=== PATIENT | male | born 1980 | race Caucasian/White ===

== ENCOUNTER → 2017-08-29 | Day surgery (SDC) | payer OTHER ==
[~2017-08-29] MED LIST: LIDOCAINE 2% INJ 100 MG/5 ML SDV (FOR ANES.) As Ordered; PROPOFOL 200 MG/20 ML VIAL As Ordered
[2017-08-29] MEDS: NS 1,000 ML IV (09:59)
== END | disposition home or self-care (01) ==
LOC: M OPP 09:44
DX: K64.0 First degree hemorrhoids (principal); K63.89 Other specified diseases of intestine; K62.5 Hemorrhage of anus and rectum; R19.4 Change in bowel habit; K57.30 Diverticulosis of large intestine without perforation or abscess without bleeding; K22.8 Other specified diseases of esophagus; R12 Heartburn; Z88.8 Allergy status to other drugs, medicaments and biological substances; Z87.891 Personal history of nicotine dependence; Z80.3 Family history of malignant neoplasm of breast; Z83.3 Family history of diabetes mellitus; Z80.42 Family history of malignant neoplasm of prostate
CPT/HCPCS: 45380

== ENCOUNTER 2021-02-19 15:23 | Inpatient (IN) | payer OTHER ==
[~2021-02-19] VITALS: Ht 180.3 cm; Wt 86.5 kg
[2021-02-19] MEDS ORDERED: NS 1,000 ML IV ONE (17:50)
[2021-02-19] MEDS ORDERED: METOCLOPRAMIDE INJ 10MG/2ML VIAL (J2765 PER 1) IV ONE (17:50)
[2021-02-19] MEDS ORDERED: MORPHINE 4 MG/ML 1ML VIAL/SYRINGE (J2270) IV ONE (17:50)
[2021-02-19 18:16] LABS: BASO % 0.3 % (0.0-1.0); EOS % 0.1 % (0.0-3.0); HEMATOCRIT 46.2 % (42.0-52.0); HEMOGLOBIN 14.9 g/dl (13.5-17.5); LYMPH # 0.7 10^3/uL (1.5-5.0); LYMPH % 4.8 % (24.0-44.0); MEAN CORPUSCULAR HEMOGLOBIN 30.7 pg (27.0-33.0); MEAN CORPUSCULAR HGB CONC 32.3 g/dl (32.0-36.5); MEAN CORPUSCULAR VOLUME 95.3 fl (80.0-96.0); MONO # 0.6 10^3/uL (0.0-0.8); MONO % 4.4 % (2.0-8.0); NEUTROPHILS # 12.9 10^3/uL (1.5-8.5); PLATELET COUNT, AUTOMATED 401 10^3/uL (150-450); RED BLOOD COUNT 4.85 10^6/uL (4.30-6.10); WHITE BLOOD COUNT 14.3 10^3/uL (4.0-10.0)
[2021-02-19 18:32] LABS: INR 0.99; PROTHROMBIN TIME 13.5 SECONDS (12.7-14.5)
[2021-02-19 18:33] LABS: PARTIAL THROMBOPLASTIN TIME 30.5 SECONDS (25.9-37.0)
[2021-02-19] MEDS ORDERED: METF-839 PO (18:33)
[2021-02-19] MEDS ORDERED: PANT20TA6 PO (18:33)
[2021-02-19] MEDS ORDERED: medical marijuana (18:33)
[2021-02-19 18:37] LABS: ALT/SGPT 334 U/L (12-78); BILIRUBIN,DIRECT 2.8 MG/DL (0.0-0.2); BILIRUBIN,TOTAL 3.7 MG/DL (0.2-1.0); BLOOD UREA NITROGEN 10 MG/DL (7-18); CALCIUM LEVEL 10.3 MG/DL (8.5-10.1); CARBON DIOXIDE LEVEL 26 MEQ/L (21-32); CHLORIDE LEVEL 105 MEQ/L (98-107); CREATININE FOR GFR 0.98 MG/DL (0.70-1.30); GLOMERULAR FILTRATION RATE > 60.0 (>60); GLUCOSE, FASTING 111 MG/DL (70-100); LIPASE 322 U/L (73-393); POTASSIUM SERUM 4.4 MEQ/L (3.5-5.1); SODIUM LEVEL 139 MEQ/L (136-145); TOTAL PROTEIN 7.7 GM/DL (6.4-8.2)
[2021-02-19] MEDS ORDERED: HOME MED LIST COMPLETE! XX SCH (21:55)
[2021-02-19] MEDS ORDERED: MOM 30ML SUSPENSION UDC PO PRN (23:05)
[2021-02-20] MEDS ORDERED: PERCOCET 5MG/325MG TAB PO PRN ×2 (02:15→17:30)
[2021-02-20] MEDS: PERCOCET 5MG/325MG TAB PO PRN ×2 (04:27→20:39)
[2021-02-20 08:30] VITALS: BP 141/73
[2021-02-20 08:38] LABS: HEMOGLOBIN 13.8 g/dl (13.5-17.5); MEAN CORPUSCULAR HEMOGLOBIN 30.9 pg (27.0-33.0); MEAN CORPUSCULAR HGB CONC 32.1 g/dl (32.0-36.5); MEAN CORPUSCULAR VOLUME 96.2 fl (80.0-96.0); PLATELET COUNT, AUTOMATED 354 10^3/uL (150-450); RED BLOOD COUNT 4.47 10^6/uL (4.30-6.10); WHITE BLOOD COUNT 9.5 10^3/uL (4.0-10.0)
[2021-02-20] MEDS: DOCUSATE SODIUM 100MG CAPSULE PO SCH ×2 (09:00→20:39)
[2021-02-20 09:07] LABS: ALBUMIN 3.5 GM/DL (3.2-5.2); ALT/SGPT 299 U/L (12-78); BILIRUBIN,TOTAL 2.2 MG/DL (0.2-1.0); BLOOD UREA NITROGEN 12 MG/DL (7-18); CALCIUM LEVEL 9.5 MG/DL (8.5-10.1); CARBON DIOXIDE LEVEL 23 MEQ/L (21-32); CHLORIDE LEVEL 105 MEQ/L (98-107); CREATININE FOR GFR 0.86 MG/DL (0.70-1.30); GLOMERULAR FILTRATION RATE > 60.0 (>60); GLUCOSE, FASTING 75 MG/DL (70-100); POTASSIUM SERUM 4.5 MEQ/L (3.5-5.1); SODIUM LEVEL 139 MEQ/L (136-145); TOTAL PROTEIN 6.7 GM/DL (6.4-8.2)
[2021-02-20] MEDS: HEPARIN SOD (PORCINE) 5000UNITS/ML 1ML VIAL/SYRINGE SC SCH ×2 (09:26→20:38)
[2021-02-20] MEDS ORDERED: ISOVUE-300 61% 50ML VIAL As Ordered ONE (13:54)
[2021-02-20] MEDS ORDERED: LIDOCAINE 2% 100MG/5ML SDV (FOR ANES.) As Ordered ONE (14:06)
[2021-02-20] MEDS ORDERED: fentaNYL 100 MCG/2 ML INJECTION As Ordered ONE (14:06)
[2021-02-20] MEDS ORDERED: ROCURONIUM BROMIDE 50 MG/5 ML VIAL As Ordered ONE (14:06)
[2021-02-20] MEDS ORDERED: propofoL 200 MG/20 ML VIAL As Ordered ONE (14:06)
[2021-02-20] MEDS ORDERED: MIDAZOLAM INJ 2MG/2ML VIAL (J2250 PER 1MG) As Ordered ONE ×2 (14:07→17:18)
[2021-02-20] MEDS ORDERED: GLUCAGON INJ 1MG VIAL As Ordered ONE (15:15)
[2021-02-20] MEDS ORDERED: METOCLOPRAMIDE INJ 10MG/2ML VIAL (J2765 PER 1) As Ordered ONE (16:16)
[2021-02-20] MEDS ORDERED: SUGAMMADEX SODIUM 500 MG/5 ML VIAL (BRIDION) As Ordered ONE (16:17)
[2021-02-20] MEDS ORDERED: KETOROLAC 60MG 2ML VIAL As Ordered ONE (16:19)
[2021-02-20] MEDS: MIDAZOLAM INJ 2MG/2ML VIAL (J2250 PER 1MG) IV SCH ×2 (17:19→17:39)
[2021-02-20] MEDS ORDERED: diphenhydrAMINE 50MG/ML VIAL (J1200) As Ordered ONE (17:22)
[2021-02-20] MEDS: diphenhydrAMINE 50MG/ML VIAL (J1200) IV PRN ×2 (17:24→18:11)
[2021-02-20] MEDS ORDERED: PROMETHAZINE INJ 25 MG/ML VIAL (J2550) IV PRN (17:30)
[2021-02-20] MEDS ORDERED: METOCLOPRAMIDE INJ 10MG/2ML VIAL (J2765 PER 1) IV PRN (17:30)
[2021-02-20] MEDS ORDERED: fentaNYL 100 MCG/2 ML INJECTION IV PRN (17:30)
[2021-02-20] MEDS ORDERED: LR 1,000 ML IV SCH (17:30)
[2021-02-20 17:38] LABS: TRIGLYCERIDES LEVEL 103 MG/DL (<150)
[2021-02-20 18:38] VITALS: BP 156/95
[2021-02-20 22:00] VITALS: BP 110/76
[2021-02-20] MEDS ORDERED: diphenhydrAMINE 50MG/ML VIAL (J1200) IV ONE (22:00)
[2021-02-20] MEDS ORDERED: FAMOTIDINE INJ 20MG/2ML VIAL (S0028 PER 1) IVP ONE (22:00)
[2021-02-21] MEDS: PERCOCET 5MG/325MG TAB PO PRN ×4 (02:39→23:36)
[2021-02-21 06:00] VITALS: BP 125/82
[2021-02-21] MEDS: ACETAMINOPHEN TAB 650MG DOSE (2X325MG) PO PRN (06:09)
[2021-02-21] MEDS ORDERED: MORPHINE 2 MG/ML 1ML VIAL (J2270) IV ONE (06:20)
[2021-02-21 07:53] LABS: HEMATOCRIT 42.6 % (42.0-52.0); HEMOGLOBIN 13.5 g/dl (13.5-17.5); MEAN CORPUSCULAR HEMOGLOBIN 30.5 pg (27.0-33.0); MEAN CORPUSCULAR HGB CONC 31.7 g/dl (32.0-36.5); MEAN CORPUSCULAR VOLUME 96.2 fl (80.0-96.0); PLATELET COUNT, AUTOMATED 370 10^3/uL (150-450); RED BLOOD COUNT 4.43 10^6/uL (4.30-6.10); WHITE BLOOD COUNT 8.6 10^3/uL (4.0-10.0)
[2021-02-21 08:12] LABS: HEMOGLOBIN A1c 5.7 %
[2021-02-21 08:17] LABS: ALBUMIN 3.4 GM/DL (3.2-5.2); ALT/SGPT 260 U/L (12-78); BILIRUBIN,TOTAL 1.3 MG/DL (0.2-1.0); BLOOD UREA NITROGEN 15 MG/DL (7-18); CALCIUM LEVEL 9.2 MG/DL (8.5-10.1); CARBON DIOXIDE LEVEL 26 MEQ/L (21-32); CHLORIDE LEVEL 104 MEQ/L (98-107); CHOLESTEROL LEVEL 189 MG/DL (<200); CHOLESTEROL RISK RATIO 5.558 (<5); CREATININE FOR GFR 1.06 MG/DL (0.70-1.30); GLOMERULAR FILTRATION RATE > 60.0 (>60); GLUCOSE, FASTING 90 MG/DL (70-100); HDL CHOLESTEROL 34 MG/DL (>40); LDL CHOLESTEROL 129 MG/DL (<100); NON-HDL-C 155 MG/DL; POTASSIUM SERUM 4.4 MEQ/L (3.5-5.1); SODIUM LEVEL 138 MEQ/L (136-145); TOTAL PROTEIN 6.6 GM/DL (6.4-8.2); TRIGLYCERIDES LEVEL 129 MG/DL (<150)
[2021-02-21] MEDS: DOCUSATE SODIUM 100MG CAPSULE PO SCH ×2 (09:00→21:00)
[2021-02-21] MEDS: HEPARIN SOD (PORCINE) 5000UNITS/ML 1ML VIAL/SYRINGE SC SCH ×2 (09:37→20:26)
[2021-02-21] MEDS ORDERED: NS 1,000 ML IV ONE (11:15)
[2021-02-21] MEDS: NS 1,000 ML IV SCH ×2 (11:26→17:08)
[2021-02-21] MEDS: MORPHINE 2 MG/ML 1ML VIAL (J2270) IV PRN ×2 (12:34→20:13)
[2021-02-21] MEDS ORDERED: diphenhydrAMINE 50MG/ML VIAL (J1200) IV PRN (20:10)
[2021-02-21 22:00] VITALS: BP 134/82
[2021-02-22] MEDS: RAMELTEON 8 MG TAB (ROZEREM) PO PRN ×2 (00:13→23:53)
[2021-02-22] MEDS: NS 1,000 ML IV SCH ×4 (05:56→21:50)
[2021-02-22] MEDS: PERCOCET 5MG/325MG TAB PO PRN ×3 (05:57→20:39)
[2021-02-22 06:00] VITALS: BP 124/77
[2021-02-22 07:03] LABS: HEMATOCRIT 40.1 % (42.0-52.0); HEMOGLOBIN 12.7 g/dl (13.5-17.5); MEAN CORPUSCULAR HEMOGLOBIN 30.8 pg (27.0-33.0); MEAN CORPUSCULAR HGB CONC 31.7 g/dl (32.0-36.5); MEAN CORPUSCULAR VOLUME 97.1 fl (80.0-96.0); PLATELET COUNT, AUTOMATED 339 10^3/uL (150-450); RED BLOOD COUNT 4.13 10^6/uL (4.30-6.10); WHITE BLOOD COUNT 7.8 10^3/uL (4.0-10.0)
[2021-02-22 07:38] LABS: ALBUMIN 3.1 GM/DL (3.2-5.2); ALT/SGPT 177 U/L (12-78); BILIRUBIN,TOTAL 0.8 MG/DL (0.2-1.0); BLOOD UREA NITROGEN 7 MG/DL (7-18); CALCIUM LEVEL 8.7 MG/DL (8.5-10.1); CARBON DIOXIDE LEVEL 30 MEQ/L (21-32); CHLORIDE LEVEL 106 MEQ/L (98-107); CREATININE FOR GFR 0.81 MG/DL (0.70-1.30); GLOMERULAR FILTRATION RATE > 60.0 (>60); GLUCOSE, FASTING 120 MG/DL (70-100); POTASSIUM SERUM 3.9 MEQ/L (3.5-5.1); SODIUM LEVEL 141 MEQ/L (136-145); TOTAL PROTEIN 6.2 GM/DL (6.4-8.2)
[2021-02-22] MEDS: HEPARIN SOD (PORCINE) 5000UNITS/ML 1ML VIAL/SYRINGE SC SCH ×2 (08:45→20:38)
[2021-02-22] MEDS: DOCUSATE SODIUM 100MG CAPSULE PO SCH ×2 (08:45→21:00)
[2021-02-22 10:53] LABS: CA19-9 TUMOR MARKER,CARBOHYDRA 11.4 U/ML (<35.0)
[2021-02-22 14:00] VITALS: BP 135/81
[2021-02-22] MEDS ORDERED: DEXTROSE 50% 50 ML SYRINGE IV PRN (14:40)
[2021-02-22] MEDS ORDERED: GLUCOSE 4GM CHEW TABLET PO PRN (14:40)
[2021-02-22] MEDS ORDERED: GLUCAGON INJ 1MG VIAL SC PRN (14:40)
[2021-02-22] MEDS: HumaLOG INSULIN (NovoLOG) PER UNIT SC SCH ×2 (17:30→21:00)
[2021-02-22 19:51] VITALS: BP 136/82
[2021-02-22] MEDS: MORPHINE 2 MG/ML 1ML VIAL (J2270) IV PRN (23:50)
[2021-02-23 06:00] VITALS: BP 134/81
[2021-02-23 06:34] LABS: HEMATOCRIT 38.6 % (42.0-52.0); HEMOGLOBIN 12.7 g/dl (13.5-17.5); MEAN CORPUSCULAR HEMOGLOBIN 31.4 pg (27.0-33.0); MEAN CORPUSCULAR HGB CONC 32.9 g/dl (32.0-36.5); MEAN CORPUSCULAR VOLUME 95.5 fl (80.0-96.0); PLATELET COUNT, AUTOMATED 333 10^3/uL (150-450); RED BLOOD COUNT 4.04 10^6/uL (4.30-6.10); WHITE BLOOD COUNT 10.8 10^3/uL (4.0-10.0)
[2021-02-23 07:07] LABS: ALBUMIN 2.9 GM/DL (3.2-5.2); ALT/SGPT 130 U/L (12-78); BILIRUBIN,TOTAL 0.7 MG/DL (0.2-1.0); BLOOD UREA NITROGEN 6 MG/DL (7-18); CALCIUM LEVEL 8.7 MG/DL (8.5-10.1); CARBON DIOXIDE LEVEL 27 MEQ/L (21-32); CHLORIDE LEVEL 110 MEQ/L (98-107); CREATININE FOR GFR 0.82 MG/DL (0.70-1.30); GLOMERULAR FILTRATION RATE > 60.0 (>60); GLUCOSE, FASTING 102 MG/DL (70-100); POTASSIUM SERUM 4.1 MEQ/L (3.5-5.1); SODIUM LEVEL 143 MEQ/L (136-145)
[2021-02-23] MEDS: HumaLOG INSULIN (NovoLOG) PER UNIT SC SCH ×4 (07:30→21:00)
[2021-02-23] MEDS: DOCUSATE SODIUM 100MG CAPSULE PO SCH ×3 (09:00→21:11)
[2021-02-23] MEDS: NS 1,000 ML IV SCH ×3 (09:50→17:51)
[2021-02-23] MEDS: HEPARIN SOD (PORCINE) 5000UNITS/ML 1ML VIAL/SYRINGE SC SCH ×2 (09:51→21:11)
[2021-02-23] MEDS: PERCOCET 5MG/325MG TAB PO PRN ×2 (09:51→21:16)
[2021-02-23 14:00] VITALS: BP 140/88
[2021-02-23] MEDS: ACETAMINOPHEN TAB 650MG DOSE (2X325MG) PO PRN (17:50)
[2021-02-23 22:00] VITALS: BP 134/86
[2021-02-24] MEDS: RAMELTEON 8 MG TAB (ROZEREM) PO PRN (00:27)
[2021-02-24] MEDS: NS 1,000 ML IV SCH (00:27)
[2021-02-24 06:00] VITALS: BP 131/82
[2021-02-24 06:32] LABS: HEMATOCRIT 38.4 % (42.0-52.0); HEMOGLOBIN 12.4 g/dl (13.5-17.5); MEAN CORPUSCULAR HEMOGLOBIN 30.8 pg (27.0-33.0); MEAN CORPUSCULAR HGB CONC 32.3 g/dl (32.0-36.5); MEAN CORPUSCULAR VOLUME 95.3 fl (80.0-96.0); PLATELET COUNT, AUTOMATED 346 10^3/uL (150-450); RED BLOOD COUNT 4.03 10^6/uL (4.30-6.10); WHITE BLOOD COUNT 10.2 10^3/uL (4.0-10.0)
[2021-02-24 06:51] LABS: ALT/SGPT 98 U/L (12-78); BILIRUBIN,TOTAL 0.6 MG/DL (0.2-1.0); BLOOD UREA NITROGEN 7 MG/DL (7-18); CALCIUM LEVEL 8.8 MG/DL (8.5-10.1); CARBON DIOXIDE LEVEL 28 MEQ/L (21-32); CHLORIDE LEVEL 109 MEQ/L (98-107); CREATININE FOR GFR 0.87 MG/DL (0.70-1.30); GLOMERULAR FILTRATION RATE > 60.0 (>60); GLUCOSE, FASTING 103 MG/DL (70-100); POTASSIUM SERUM 4.2 MEQ/L (3.5-5.1); SODIUM LEVEL 143 MEQ/L (136-145); TOTAL PROTEIN 6.2 GM/DL (6.4-8.2)
[2021-02-24] MEDS: HumaLOG INSULIN (NovoLOG) PER UNIT SC SCH (07:30)
[2021-02-24] MEDS: DOCUSATE SODIUM 100MG CAPSULE PO SCH (09:00)
[2021-02-24] MEDS: HEPARIN SOD (PORCINE) 5000UNITS/ML 1ML VIAL/SYRINGE SC SCH (09:00)
[2021-02-24] MEDS ORDERED: PERCOCET PO (09:31)
[2021-02-24 16:09] LABS: ANCA-ATYPICAL <1:20 titer (Neg:<1:20); ANTI-MITOCHONDRIAL ANTIBODY <20.0 Units (0.0-20.0); CYTOPLASMIC NEUTROP AB ANCA-C <1:20 titer (Neg:<1:20); PERINUCLEAR AB ANCA-P <1:20 titer (Neg:<1:20)
== END 2021-02-24 12:55 | disposition home or self-care (01) | DRG 439 ==
LOC: M ED 15:23 → EDBD 15:23 → M ED INP 23:03 → ENRESERV 02-20 06:35 → M MS5PR 02-20 08:15
PROVIDERS: ADMIT Family Medicine; ATTEND Family Medicine
PROC: 0FB98ZX Excision of Common Bile Duct, Via Natural or Artificial Opening Endoscopic, Diagnostic (ICD-10-PCS; 2021-02-20)
PROC: 0F798DZ Dilation of Common Bile Duct with Intraluminal Device, Via Natural or Artificial Opening Endoscopic (ICD-10-PCS; principal; 2021-02-20 10:25)
DX: K85.00 Idiopathic acute pancreatitis without necrosis or infection (principal); R17 Unspecified jaundice; E11.9 Type 2 diabetes mellitus without complications; Z79.84 Long term (current) use of oral hypoglycemic drugs; Z79.899 Other long term (current) drug therapy; Z20.822 Contact with and (suspected) exposure to COVID-19; Z88.5 Allergy status to narcotic agent; Z88.6 Allergy status to analgesic agent; Z88.8 Allergy status to other drugs, medicaments and biological substances

== ENCOUNTER 2021-05-06 10:34 | Emergency (ER) | payer OTHER ==
[~2021-05-06] VITALS: Ht 180.3 cm; Wt 88.6 kg
[~2021-05-06 10:34] MED LIST changes: -LIDOCAINE 2% INJ 100 MG/5 ML SDV (FOR ANES.) As Ordered; +METF-839 PO; +PANT20TA6 PO; +PERCOCET PO; -PROPOFOL 200 MG/20 ML VIAL As Ordered; +medical marijuana
[2021-05-06 11:29] LABS: BASO # 0.1 10^3/uL (0.0-0.2); BASO % 0.5 % (0.0-1.0); EOS # 0.2 10^3/uL (0.0-0.5); EOS % 2.3 % (0.0-3.0); HEMATOCRIT 43.5 % (42.0-52.0); HEMOGLOBIN 14.4 g/dl (13.5-17.5); LYMPH # 2.7 10^3/uL (1.5-5.0); LYMPH % 27.9 % (24.0-44.0); MEAN CORPUSCULAR HEMOGLOBIN 31.6 pg (27.0-33.0); MEAN CORPUSCULAR HGB CONC 33.1 g/dl (32.0-36.5); MEAN CORPUSCULAR VOLUME 95.6 fl (80.0-96.0); MONO # 0.9 10^3/uL (0.0-0.8); MONO % 8.8 % (2.0-8.0); NEUTROPHILS # 5.8 10^3/uL (1.5-8.5); NEUTROPHILS % 60.1 % (36.0-66.0); PLATELET COUNT, AUTOMATED 375 10^3/uL (150-450); RED BLOOD COUNT 4.55 10^6/uL (4.30-6.10); WHITE BLOOD COUNT 9.7 10^3/uL (4.0-10.0)
[2021-05-06 11:52] LABS: ALBUMIN 3.7 GM/DL (3.2-5.2); ALT/SGPT 26 U/L (12-78); BILIRUBIN,TOTAL 0.2 MG/DL (0.2-1.0); BLOOD UREA NITROGEN 10 MG/DL (7-18); CALCIUM LEVEL 9.6 MG/DL (8.5-10.1); CARBON DIOXIDE LEVEL 26 MEQ/L (21-32); CHLORIDE LEVEL 107 MEQ/L (98-107); GLOMERULAR FILTRATION RATE > 60.0 (>60); GLUCOSE, FASTING 106 MG/DL (70-100); LIPASE 291 U/L (73-393); POTASSIUM SERUM 5.4 MEQ/L (3.5-5.1); SODIUM LEVEL 139 MEQ/L (136-145); TOTAL PROTEIN 6.9 GM/DL (6.4-8.2)
[2021-05-06] MEDS ORDERED: NS 1,000 ML IV ONE (12:40)
[2021-05-06] MEDS ORDERED: METOCLOPRAMIDE INJ 10MG/2ML VIAL (J2765 PER 1) IV ONE (13:15)
[2021-05-06] MEDS ORDERED: MORPHINE 4 MG/ML 1ML VIAL/SYRINGE (J2270) IV ONE (13:15)
[2021-05-06] MEDS ORDERED: ISOVUE-370 76% 100ML VIAL As Ordered ONE (13:37)
[2021-05-06 15:30] VITALS: BP 119/73
== END 2021-05-06 16:25 | disposition home or self-care (01) ==
LOC: M ED 10:34
DX: R10.10 Upper abdominal pain, unspecified (principal); R11.0 Nausea; E11.9 Type 2 diabetes mellitus without complications; Z87.19 Personal history of other diseases of the digestive system; Z88.5 Allergy status to narcotic agent; Z88.8 Allergy status to other drugs, medicaments and biological substances; Z91.018 Allergy to other foods; Z79.84 Long term (current) use of oral hypoglycemic drugs; Z77.098 Contact with and (suspected) exposure to other hazardous, chiefly nonmedicinal, chemicals; F12.20 Cannabis dependence, uncomplicated
CPT/HCPCS: 74177; 80053; 81001; 83690; 85025; 96361; 96374; 96375; 99284; J2270; J2765; Q9967

== ENCOUNTER → 2021-08-31 | Outpatient (CLI) | payer OTHER ==
[~2021-08-31] MED LIST changes: +PROHANCE 279.3MG/ML 15ML VIAL As Ordered ONE; +PROHANCE 279.3MG/ML 5ML VIAL As Ordered ONE
== END ==
LOC: M RAD 13:21
PROVIDERS: ATTEND Internal Medicine Gastroenterology
DX: K86.3 Pseudocyst of pancreas (principal); K86.1 Other chronic pancreatitis; K83.1 Obstruction of bile duct
CPT/HCPCS: 74183; A9576

== ENCOUNTER 2022-05-24 11:21 | Emergency (ER) | payer BC, OTHER ==
[~2022-05-24] VITALS: Ht 180.3 cm; Wt 91.3 kg
[~2022-05-24 11:21] MED LIST changes: -PROHANCE 279.3MG/ML 15ML VIAL As Ordered ONE; -PROHANCE 279.3MG/ML 5ML VIAL As Ordered ONE
[2022-05-24] MEDS ORDERED: SERT25TA21 (11:59)
[2022-05-24] MEDS ORDERED: HYDR-3363 (11:59)
[2022-05-24 12:37] LABS: BASO # 0.1 10^3/uL (0.0-0.2); BASO % 0.4 % (0.0-1.0); EOS # 0.1 10^3/uL (0.0-0.5); EOS % 1.1 % (0.0-3.0); HEMATOCRIT 45.9 % (42.0-52.0); HEMOGLOBIN 14.2 g/dl (13.5-17.5); LYMPH # 2.1 10^3/uL (1.5-5.0); LYMPH % 16.1 % (24.0-44.0); MEAN CORPUSCULAR HEMOGLOBIN 30.3 pg (27.0-33.0); MEAN CORPUSCULAR HGB CONC 30.9 g/dl (32.0-36.5); MEAN CORPUSCULAR VOLUME 97.9 fl (80.0-96.0); MONO % 7.3 % (2.0-8.0); NEUTROPHILS # 9.7 10^3/uL (1.5-8.5); NEUTROPHILS % 74.8 % (36.0-66.0); PLATELET COUNT, AUTOMATED 442 10^3/uL (150-450); RED BLOOD COUNT 4.69 10^6/uL (4.30-6.10)
[2022-05-24 12:45] LABS: LIPASE 145 U/L (12-53)
[2022-05-24 12:48] LABS: ALBUMIN 3.8 G/DL (3.2-5.2); ALKALINE PHOSPHATASE 86 U/L (46-116); ALT/SGPT 22 U/L (7.0-40); AST/SGOT 16 U/L (<34); BILIRUBIN,DIRECT 0.1 MG/DL (<0.4); BILIRUBIN,TOTAL 0.3 MG/DL (0.3-1.2); BLOOD UREA NITROGEN 9 MG/DL (9-23); CALCIUM LEVEL 9.4 MG/DL (8.5-10.1); CARBON DIOXIDE LEVEL 31 MMOL/L (20-31); CHLORIDE LEVEL 104 MMOL/L (98-107); CREATININE FOR GFR 0.83 MG/DL (0.70-1.30); GLOMERULAR FILTRATION RATE > 60.0 (>60); GLUCOSE, FASTING 112 MG/DL (60-100); POTASSIUM SERUM 5.1 MMOL/L (3.5-5.1); SODIUM LEVEL 140 MMOL/L (136-145); TOTAL PROTEIN 7.1 G/DL (5.7-8.2)
[2022-05-24] MEDS ORDERED: ISOVUE-370 76% 100ML VIAL As Ordered ONE (13:15)
[2022-05-24] MEDS ORDERED: MORPHINE 4 MG/ML 1ML VIAL IV ONE (14:10)
[2022-05-24] MEDS ORDERED: NS 1,000 ML IV ONE (14:10)
[2022-05-24] MEDS ORDERED: PROMETHAZINE 25MG/ML 1ML VIAL IV ONE (14:10)
[2022-05-24] MEDS ORDERED: diphenhydrAMINE 50MG/ML VIAL IV STA (14:47)
[2022-05-24] MEDS ORDERED: PERC5TAB12 PO (16:26)
[2022-05-24] MEDS ORDERED: PROM25TA12 PO (16:26)
[2022-05-24 18:37] VITALS: BP 123/70
== END 2022-05-24 18:40 | disposition home or self-care (01) ==
LOC: M ED 11:21
DX: K86.1 Other chronic pancreatitis (principal); K31.89 Other diseases of stomach and duodenum; E11.9 Type 2 diabetes mellitus without complications; Z88.6 Allergy status to analgesic agent; Z88.5 Allergy status to narcotic agent; Z88.8 Allergy status to other drugs, medicaments and biological substances; Z79.84 Long term (current) use of oral hypoglycemic drugs; Z79.899 Other long term (current) drug therapy
CPT/HCPCS: 74177; 80048; 80076; 81001; 83690; 85025; 96374; 96375; 99284; J1200; J2270; J2550

== ENCOUNTER 2022-06-06 11:24 | Inpatient (IN) | payer BC ==
[~2022-06-06] VITALS: Ht 180.3 cm; Wt 90.5 kg
[~2022-06-06 11:24] MED LIST changes: +HYDR-3363; +PERC5TAB12 PO; +PROM25TA12 PO; +SERT25TA21
[2022-06-06] MEDS ORDERED: PRED10TA2 (11:41)
[2022-06-06 13:13] LABS: BASO % 0.2 % (0.0-1.0); EOS # 0.1 10^3/uL (0.0-0.5); EOS % 0.4 % (0.0-3.0); HEMATOCRIT 45.6 % (42.0-52.0); HEMOGLOBIN 14.3 g/dl (13.5-17.5); LYMPH # 3.4 10^3/uL (1.5-5.0); MEAN CORPUSCULAR HEMOGLOBIN 30.4 pg (27.0-33.0); MEAN CORPUSCULAR HGB CONC 31.4 g/dl (32.0-36.5); MONO # 1.3 10^3/uL (0.0-0.8); NEUTROPHILS # 11.4 10^3/uL (1.5-8.5); PLATELET COUNT, AUTOMATED 467 10^3/uL (150-450); WHITE BLOOD COUNT 16.3 10^3/uL (4.0-10.0)
[2022-06-06 13:40] LABS: LIPASE 232 U/L (12-53)
[2022-06-06 13:46] LABS: ALBUMIN 4.1 G/DL (3.2-5.2); ALKALINE PHOSPHATASE 87 U/L (46-116); ALT/SGPT 20 U/L (7.0-40); AST/SGOT 14 U/L (<34); BILIRUBIN,DIRECT 0.1 MG/DL (<0.4); BILIRUBIN,TOTAL 0.3 MG/DL (0.3-1.2); BLOOD UREA NITROGEN 12 MG/DL (9-23); CALCIUM LEVEL 9.1 MG/DL (8.5-10.1); CARBON DIOXIDE LEVEL 29 MMOL/L (20-31); CHLORIDE LEVEL 104 MMOL/L (98-107); CREATININE FOR GFR 0.82 MG/DL (0.70-1.30); GLOMERULAR FILTRATION RATE > 60.0 (>60); GLUCOSE, FASTING 83 MG/DL (60-100); POTASSIUM SERUM 3.8 MMOL/L (3.5-5.1); SODIUM LEVEL 140 MMOL/L (136-145); TOTAL PROTEIN 7.4 G/DL (5.7-8.2)
[2022-06-06 14:01] LABS: CK-MB VALUE MASS < 1.0 NG/ML (<3.6)
[2022-06-06 14:03] LABS: CPK CREATINE PHOSPHOKINASE 42 U/L (46-171); MB/CK RELATIVE INDEX 2.38 (< OR =4)
[2022-06-06] MEDS ORDERED: NS 1,000 ML IV ONE (14:10)
[2022-06-06] MEDS ORDERED: PROMETHAZINE 25MG/ML 1ML VIAL IV ONE (14:10)
[2022-06-06] MEDS ORDERED: MORPHINE 4 MG/ML 1ML VIAL IV ONE (14:10)
[2022-06-06] MEDS ORDERED: ISOVUE-370 76% 100ML VIAL As Ordered ONE (14:34)
[2022-06-06] MEDS ORDERED: PIPERACILLIN/TAZOBACTAM SOD 3.375 GM in D5W MINI-BAG PLUS 50 ML IV ONE (15:50)
[2022-06-06] MEDS: LR 1,000 ML IV SCH (16:12)
[2022-06-06 16:41] LABS: CHOLESTEROL LEVEL 203 MG/DL (<200); CHOLESTEROL RISK RATIO 5.12 (<5); HDL CHOLESTEROL 39.6 MG/DL (>40); LDL CHOLESTEROL 135.2 MG/DL (<100); NON-HDL-C 163.4 MG/DL; TRIGLYCERIDES LEVEL 141 MG/DL (<150)
[2022-06-06] MEDS ORDERED: MORPHINE 2 MG/ML 1ML VIAL IV PRN (18:00)
[2022-06-06] MEDS ORDERED: ACETAMINOPHEN 500 MG TAB PO PRN (18:00)
[2022-06-06] MEDS ORDERED: OXYC1TAB23 PO (18:44)
[2022-06-06] MEDS ORDERED: PRED10TA2 PO (18:50)
[2022-06-06] MEDS ORDERED: HOME MED LIST COMPLETE! XX SCH (18:50)
[2022-06-06] MEDS ORDERED: PROM25TA12 PO (18:50)
[2022-06-06] MEDS: predniSONE 10MG TAB PO SCH (19:14)
[2022-06-06 20:10] VITALS: BP 117/75
[2022-06-06] MEDS: MORPHINE 4 MG/ML 1ML VIAL IV PRN (21:29)
[2022-06-07] VITALS (8 sets, daily range): BP systolic 117–128; BP diastolic 73–81
[2022-06-07] MEDS: LR 1,000 ML IV SCH ×2 (06:31→15:46)
[2022-06-07] MEDS: MORPHINE 4 MG/ML 1ML VIAL IV PRN ×4 (06:31→23:47)
[2022-06-07 07:00] LABS: BASO % 0.2 % (0.0-1.0); EOS % 0.2 % (0.0-3.0); HEMATOCRIT 39.6 % (42.0-52.0); HEMOGLOBIN 12.5 g/dl (13.5-17.5); LYMPH % 18.3 % (24.0-44.0); MEAN CORPUSCULAR HEMOGLOBIN 30.6 pg (27.0-33.0); MEAN CORPUSCULAR HGB CONC 31.6 g/dl (32.0-36.5); MEAN CORPUSCULAR VOLUME 97.1 fl (80.0-96.0); MONO # 0.8 10^3/uL (0.0-0.8); MONO % 7.2 % (2.0-8.0); NEUTROPHILS # 8.2 10^3/uL (1.5-8.5); NEUTROPHILS % 73.7 % (36.0-66.0); PLATELET COUNT, AUTOMATED 397 10^3/uL (150-450); RED BLOOD COUNT 4.08 10^6/uL (4.30-6.10); WHITE BLOOD COUNT 11.2 10^3/uL (4.0-10.0)
[2022-06-07 07:06] LABS: INR 1.01; PROTHROMBIN TIME 13.5 SECONDS (12.5-14.5)
[2022-06-07 07:31] LABS: ALBUMIN 3.3 G/DL (3.2-5.2); ALKALINE PHOSPHATASE 77 U/L (46-116); ALT/SGPT 16 U/L (7.0-40); AST/SGOT 13 U/L (<34); BILIRUBIN,DIRECT 0.1 MG/DL (<0.4); BILIRUBIN,TOTAL 0.4 MG/DL (0.3-1.2); BLOOD UREA NITROGEN 13 MG/DL (9-23); CALCIUM LEVEL 9.2 MG/DL (8.5-10.1); CARBON DIOXIDE LEVEL 28 MMOL/L (20-31); CHLORIDE LEVEL 105 MMOL/L (98-107); CREATININE FOR GFR 0.73 MG/DL (0.70-1.30); GLOMERULAR FILTRATION RATE > 60.0 (>60); GLUCOSE, FASTING 101 MG/DL (60-100); POTASSIUM SERUM 4.7 MMOL/L (3.5-5.1); SODIUM LEVEL 139 MMOL/L (136-145); TOTAL PROTEIN 6.1 G/DL (5.7-8.2)
[2022-06-07] MEDS ORDERED: ENOXAPARIN 40MG/0.4ML SYRINGE (J1650 PER 10MG) SC SCH (09:00)
[2022-06-07] MEDS: predniSONE 10MG TAB PO SCH (09:39)
[2022-06-07] MEDS: PANTOPRAZOLE 40MG VIAL IV SCH (09:39)
[2022-06-07] MEDS ORDERED: MIDAZOLAM INJ 2MG/2ML VIAL As Ordered ONE (16:59)
[2022-06-07] MEDS ORDERED: LIDOCAINE 2% 100MG/5ML SDV (FOR ANES.) As Ordered ONE (16:59)
[2022-06-07] MEDS ORDERED: METOCLOPRAMIDE INJ 10MG/2ML VIAL As Ordered ONE (16:59)
[2022-06-07] MEDS ORDERED: SUGAMMADEX SODIUM 500 MG/5 ML VIAL (BRIDION) As Ordered ONE (16:59)
[2022-06-07] MEDS ORDERED: ROCURONIUM BROMIDE 50MG/5ML VIAL As Ordered ONE (16:59)
[2022-06-07] MEDS ORDERED: fentaNYL 100 MCG/2 ML INJECTION As Ordered ONE ×2 (16:59→17:10)
[2022-06-07] MEDS ORDERED: SEVOFLURANE INHAL SOLN 250 ML BTL As Ordered ONE (16:59)
[2022-06-07] MEDS ORDERED: propofoL 200 MG/20 ML VIAL As Ordered ONE (16:59)
[2022-06-07] MEDS ORDERED: HYDROMORPHONE HCL 0.5 MG/ 0.5 ML SYRINGE IV PRN (17:45)
[2022-06-07] MEDS ORDERED: LR 1,000 ML IV SCH (17:45)
[2022-06-07] MEDS ORDERED: oxyCODONE 5MG TAB PO PRN (17:45)
[2022-06-07] MEDS ORDERED: fentaNYL 100 MCG/2 ML INJECTION IV PRN (17:45)
[2022-06-08 02:26] VITALS: BP 136/75
[2022-06-08] MEDS: MORPHINE 4 MG/ML 1ML VIAL IV PRN ×2 (02:53→06:01)
[2022-06-08 06:01] VITALS: BP 133/75
[2022-06-08 06:23] LABS: BASO % 0.1 % (0.0-1.0); EOS % 0.1 % (0.0-3.0); HEMATOCRIT 37.8 % (42.0-52.0); LYMPH # 2.2 10^3/uL (1.5-5.0); LYMPH % 15.8 % (24.0-44.0); MEAN CORPUSCULAR HEMOGLOBIN 30.4 pg (27.0-33.0); MEAN CORPUSCULAR HGB CONC 31.7 g/dl (32.0-36.5); MEAN CORPUSCULAR VOLUME 95.7 fl (80.0-96.0); MONO % 7.1 % (2.0-8.0); NEUTROPHILS # 10.5 10^3/uL (1.5-8.5); NEUTROPHILS % 76.4 % (36.0-66.0); PLATELET COUNT, AUTOMATED 421 10^3/uL (150-450); RED BLOOD COUNT 3.95 10^6/uL (4.30-6.10); WHITE BLOOD COUNT 13.7 10^3/uL (4.0-10.0)
[2022-06-08 06:56] LABS: ALBUMIN 3.2 G/DL (3.2-5.2); ALKALINE PHOSPHATASE 75 U/L (46-116); ALT/SGPT 16 U/L (7.0-40); AST/SGOT 12 U/L (<34); BILIRUBIN,DIRECT 0.1 MG/DL (<0.4); BILIRUBIN,TOTAL 0.4 MG/DL (0.3-1.2); BLOOD UREA NITROGEN 10 MG/DL (9-23); CARBON DIOXIDE LEVEL 29 MMOL/L (20-31); CHLORIDE LEVEL 104 MMOL/L (98-107); CREATININE FOR GFR 0.75 MG/DL (0.70-1.30); GLOMERULAR FILTRATION RATE > 60.0 (>60); GLUCOSE, FASTING 110 MG/DL (60-100); POTASSIUM SERUM 4.5 MMOL/L (3.5-5.1); SODIUM LEVEL 141 MMOL/L (136-145); TOTAL PROTEIN 5.8 G/DL (5.7-8.2)
[2022-06-08] MEDS ORDERED: PERCOCET 5MG/325MG TAB PO PRN ×2 (07:15→08:25)
[2022-06-08] MEDS: predniSONE 10MG TAB PO SCH (09:47)
[2022-06-08] MEDS: PANTOPRAZOLE 40MG VIAL IV SCH (09:47)
[2022-06-08] MEDS: PERCOCET 5MG/325MG TAB PO PRN ×4 (09:48→23:09)
[2022-06-08 10:00] VITALS: BP 117/76
[2022-06-08 14:00] VITALS: BP 118/64
[2022-06-08 18:00] VITALS: BP 118/68
[2022-06-08 22:05] VITALS: BP 133/79
[2022-06-09] MEDS: PERCOCET 5MG/325MG TAB PO PRN ×4 (04:29→17:21)
[2022-06-09 05:22] VITALS: BP 129/76
[2022-06-09 06:12] LABS: BASO % 0.2 % (0.0-1.0); EOS # 0.3 10^3/uL (0.0-0.5); EOS % 2.1 % (0.0-3.0); HEMATOCRIT 40.4 % (42.0-52.0); HEMOGLOBIN 12.8 g/dl (13.5-17.5); LYMPH # 5.6 10^3/uL (1.5-5.0); LYMPH % 36.3 % (24.0-44.0); MEAN CORPUSCULAR HEMOGLOBIN 30.4 pg (27.0-33.0); MEAN CORPUSCULAR HGB CONC 31.7 g/dl (32.0-36.5); MONO # 1.2 10^3/uL (0.0-0.8); MONO % 7.5 % (2.0-8.0); NEUTROPHILS # 8.2 10^3/uL (1.5-8.5); NEUTROPHILS % 53.4 % (36.0-66.0); PLATELET COUNT, AUTOMATED 458 10^3/uL (150-450); RED BLOOD COUNT 4.21 10^6/uL (4.30-6.10); WHITE BLOOD COUNT 15.4 10^3/uL (4.0-10.0)
[2022-06-09 06:39] LABS: ALBUMIN 3.3 G/DL (3.2-5.2); ALKALINE PHOSPHATASE 76 U/L (46-116); ALT/SGPT 17 U/L (7.0-40); AST/SGOT < 8 U/L (<34); BILIRUBIN,DIRECT 0.1 MG/DL (<0.4); BILIRUBIN,TOTAL 0.3 MG/DL (0.3-1.2); BLOOD UREA NITROGEN 10 MG/DL (9-23); CALCIUM LEVEL 9.3 MG/DL (8.5-10.1); CARBON DIOXIDE LEVEL 32 MMOL/L (20-31); CHLORIDE LEVEL 105 MMOL/L (98-107); CREATININE FOR GFR 0.93 MG/DL (0.70-1.30); GLOMERULAR FILTRATION RATE > 60.0 (>60); GLUCOSE, FASTING 94 MG/DL (60-100); POTASSIUM SERUM 4.3 MMOL/L (3.5-5.1); SODIUM LEVEL 141 MMOL/L (136-145); TOTAL PROTEIN 6.1 G/DL (5.7-8.2)
[2022-06-09] MEDS: predniSONE 10MG TAB PO SCH (08:45)
[2022-06-09] MEDS: PANTOPRAZOLE 40MG VIAL IV SCH (08:46)
[2022-06-09] MEDS ORDERED: MOM 30ML SUSPENSION UDC PO SCH (09:00)
[2022-06-09] MEDS ORDERED: ONDANSETRON 4MG 2ML VIAL IV PRN (09:10)
[2022-06-09 14:00] VITALS: BP 131/78
[2022-06-09] MEDS ORDERED: GABAPENTIN 100 MG CAP PO SCH (14:00)
[2022-06-09] MEDS ORDERED: COLA100C5 PO (16:42)
[2022-06-09] MEDS ORDERED: OXYC1TAB23 PO (16:42)
[2022-06-09] MEDS ORDERED: GABA-282 PO (16:42)
[2022-06-09] MEDS ORDERED: PERCOCET PO (16:42)
== END 2022-06-09 20:30 | disposition home or self-care (01) | DRG 282 ==
LOC: M ED 11:24 → M ED INP 17:08 → M MS5PR 20:00
PROVIDERS: ADMIT Student in an Organized Health Care Education/Training Program; ATTEND Internal Medicine Nephrology
PROC: 0FD98ZX Extraction of Common Bile Duct, Via Natural or Artificial Opening Endoscopic, Diagnostic (ICD-10-PCS; principal; 2022-06-07 17:00)
DX: K85.00 Idiopathic acute pancreatitis without necrosis or infection (principal); K83.1 Obstruction of bile duct; K76.0 Fatty (change of) liver, not elsewhere classified; K83.8 Other specified diseases of biliary tract; R73.03 Prediabetes; R93.2 Abnormal findings on diagnostic imaging of liver and biliary tract; F32.A Depression, unspecified; Z88.6 Allergy status to analgesic agent; Z88.8 Allergy status to other drugs, medicaments and biological substances